=== PATIENT | male | born 1955 | race Caucasian/White ===

== ENCOUNTER 2019-10-02 20:07 | Emergency (ER) | payer OTHER ==
[~2019-10-02] VITALS: Ht 170.2 cm; Wt 75.7 kg
[2019-10-02 20:20] VITALS: Ht 170.2 cm; Wt 75.7 kg
[2019-10-02 22:04] VITALS: BP 139/60
== END 2019-10-02 22:38 | disposition home or self-care (01) ==
LOC: ED 20:07
DX: N50.812 Left testicular pain (principal); E78.00 Pure hypercholesterolemia, unspecified
CPT/HCPCS: 87491; 87591; Q0092